=== PATIENT | female | born 1985 | race Caucasian/White ===

== ENCOUNTER 2017-03-31 09:01 | Emergency (ER) | payer MEDICAID, SELFPAY ==
[2017-03-31] MEDS ORDERED: diphenhydrAMINE HCl 50 MG/ML 1 ML VIAL ONE (10:31)
[2017-03-31 10:34] LABS: MONO NEGATIVE CONTROL ZONE White (Negative) (White); MONO POSITIVE CONTROL Pink Line (Positive) (PINK/RED); Mononucleosis NEGATIVE (NEGATIVE)
== END 2017-03-31 10:55 | disposition home or self-care (01) ==
LOC: MADERS 09:01
DX: J03.90 Acute tonsillitis, unspecified (principal); F17.210 Nicotine dependence, cigarettes, uncomplicated
CPT/HCPCS: 36415; 86308; 87081; 87430; 99283; J1200

== ENCOUNTER 2017-07-23 08:23 | Emergency (ER) | payer MEDICAID | END 2017-07-23 09:15 | disposition home or self-care (01) | LOC: MADERS 08:23 | DX: J40 Bronchitis, not specified as acute or chronic (principal); F17.210 Nicotine dependence, cigarettes, uncomplicated | CPT/HCPCS: 99283 ==

== ENCOUNTER 2018-01-07 10:46 | Emergency (ER) | payer MEDICAID ==
[2018-01-07 11:32] LABS: Clarity Hazy (Clear)
[2018-01-07 11:33] LABS: Bilirubin Negative (Negative); Blood, Urine Negative (Negative); Glucose, Urine (Dipstick) Negative (Negative); Leukocyte Negative (Negative); Nitrite Negative (Negative); Protein, Urine (Dipstick) Negative (Neg-Trace); Specific Gravity, Urine 1.015 (1.005-1.030); Urobilinogen 0.2 mg/dL (0.2-1.0); pH, Urine 7.5 (5.0-9.0)
[2018-01-07 11:55] LABS: Bacteria/HPF Rare-Few HPF (None Seen); RBC/HPF 0-3 HPF (0-3); WBC/HPF 0-3 HPF (0-3)
== END 2018-01-07 12:50 | disposition home or self-care (01) ==
LOC: MADERS 10:46
DX: Z53.21 Procedure and treatment not carried out due to patient leaving prior to being seen by health care provider (principal); F17.210 Nicotine dependence, cigarettes, uncomplicated
CPT/HCPCS: 81001; 87086

== ENCOUNTER 2019-02-12 10:40 | Emergency (ER) | payer MEDICAID, SELFPAY ==
[~2019-02-12 10:40] MED LIST: Sodium Chloride 0.9% 1,000 ML BAG ONE
[2019-02-12] MEDS ORDERED: Sodium Chloride 0.9% 1,000 ML ONE (11:12)
[2019-02-12] MEDS ORDERED: Fentanyl 100 MCG/2 ML VIAL ONE (11:12)
[2019-02-12] MEDS ORDERED: Ondansetron PF 4 MG/2 ML Vial ONE (11:12)
[2019-02-12 11:38] LABS: #Eosinphils 0.2 thou/uL (0.0-0.7); #Lymphocytes 1.7 thou/uL (1.20-3.40); #Monocytes 0.5 thou/uL (0.11-0.59); #Neutrophils 5.6 thou/uL (1.40-6.50); %Basophils 0.6 % (0.0-1.0); %Lymphocytes 20.7 % (21.0-51.0); %Monocytes 6.7 % (0.0-10.0); Hemoglobin 12.5 g/dL (12.0-16.0); Mean Corpuscular HGB CONC 32.8 g/dL (32.0-36.0); Mean Corpuscular Hemoglobin 28.5 pg (27.0-31.0); Mean Platelet Volume 7.2 fL (7.4-10.4); Platelet Count 274 thou/uL (130-400); RBC Distribution Width 13.6 % (11.5-14.5); Red Blood Cell (RBC) Count 4.38 mill/uL (4.20-5.40)
[2019-02-12 11:53] LABS: ALT (SGPT) 16 U/L (8-55); AST (SGOT) 18 U/L (5-34); Albumin 4.5 g/dL (3.5-5.0); Alkaline Phosphatase 74 U/L (40-150); Anion Gap 11 mmol/L (10-20); BUN (Urea Nitrogen) 12 mg/dL (7.0-18.7); Bilirubin, Total 0.5 mg/dL (0.2-1.2); Calc. Creatinine Clearance 0 mL/min (70-130); Calcium 9.2 mg/dL (7.8-10.44); Carbon Dioxide 25 mmol/L (22-29); Chloride 105 mmol/L (98-107); Estimated GFR-MDRD 85; Globulin 2.8 g/dL (2.4-3.5); Glucose 98 mg/dL (70-105); Lipase 18 U/L (8-78); Protein, Total 7.3 g/dL (6.0-8.3); Sodium 137 mmol/L (136-145)
[2019-02-12 12:12] LABS: Bilirubin Negative (Negative); Blood, Urine Negative (Negative); Glucose, Urine (Dipstick) Negative (Negative); Leukocyte Trace (Negative); Nitrite Negative (Negative); Protein, Urine (Dipstick) Negative (Neg-Trace)
[2019-02-12 12:23] LABS: Bacteria/HPF 2+ HPF (None Seen); Clarity Hazy (Clear); RBC/HPF 0-3 HPF (0-3); Squamous Epithelial 0-3 HPF (0-3)
[2019-02-12] MEDS ORDERED: Acetaminophen/Codeine 30-300mg Tablet ONE ×2 (12:43)
[2019-02-12] MEDS ORDERED: Promethazine HCl 25 MG/ML VIAL ONE (13:01)
[2019-02-12] MEDS ORDERED: Sulfameth/Trimethoprim DS 800-160mg TAB ONE (14:20)
== END 2019-02-12 15:13 | disposition short-term general hospital (02) ==
LOC: MADERS 10:40
DX: K80.20 Calculus of gallbladder without cholecystitis without obstruction (principal); N39.0 Urinary tract infection, site not specified
CPT/HCPCS: 36415; 80053; 81003; 81015; 83690; 85025; 87077; 87086; 87186; 96361; 96374; 96375; J2405; J2550; J3010; J7050

== ENCOUNTER 2019-07-30 10:03 | Emergency (ER) | payer SELFPAY ==
[2019-07-30] MEDS ORDERED: Ibuprofen 800 MG TAB ONE (10:30)
--- NOTE | 2019-07-30 11:30 | RAD ---
RIGHT HAND 3 VIEWS: Date: 07/30/19 HISTORY: Injury. FINDINGS: Carpals unremarkable. Metacarpals and phalanges unremarkable. MCP and IP joints are unremarkable. No fracture or acute osseous abnormality identified. IMPRESSION: No acute findings. POS: [facility]
--- NOTE | 2019-07-30 11:33 | RAD ---
RIGHT FOREARM 2 VIEWS:: Date: 07/30/19 HISTORY: Injury. FINDINGS: Radius and ulna appear unremarkable. No fracture or osseous abnormality identified. IMPRESSION: No acute abnormality. POS: [facility]
== END 2019-07-30 11:15 | disposition home or self-care (01) ==
LOC: MADERS 10:03
DX: S63.91XA Sprain of unspecified part of right wrist and hand, initial encounter (principal); S56.911A Strain of unspecified muscles, fascia and tendons at forearm level, right arm, initial encounter; W23.0XXA Caught, crushed, jammed, or pinched between moving objects, initial encounter